=== PATIENT | female | born 1990 ===

== ENCOUNTER → 2025-02-17 08:05 | Outpatient (BNVA) | payer OTHER, SELFPAY | PROVIDERS: Referring Provider Family Medicine; Visit Provider Nurse Practitioner Family | DX: L81.4 Other melanin hyperpigmentation (principal); D22.62 Melanocytic nevi of left upper limb, including shoulder; B07.8 Other viral warts; L53.8 Other specified erythematous conditions; R20.8 Other disturbances of skin sensation | CPT/HCPCS: 17110; 99213 ==